=== PATIENT | female | born 1960 | race Caucasian/White ===

== ENCOUNTER 2018-04-07 07:32 | Day surgery (SDC) | payer BC ==
--- NOTE | 2018-04-02 10:07 | RAD REPORT ---
EXAM DESCRIPTION: RAD - Chest Pa And Lat (2 Views) - 04/02/2018 10:01 am CLINICAL HISTORY: Hypertension Chest pain. COMPARISON: CHEST SINGLE VIEW dated 07/19/2012; CHEST PA AND LAT 2 VIEW dated 08/14/2010; CHEST PA AN D LAT 2 VIEW dated 06/01/2010; CHEST PA AND LAT 2 VIEW dated 07/22/2008 FINDINGS: The lungs are clear. The heart is normal in size. No displaced fractures. IMPRESSION: No acute or concerning finding suspected.
[2018-04-02 10:19] LABS: Absolute Lymphocytes (CBC) 1.9 K/uL (0.7-4.9); Absolute Monocytes 0.5 K/uL (0.1-1.3); Absolute Neutrophil 3.6 K/uL (1.8-8.0); Basophils % 0.6 % (0-1.3); Eosinophils % 3.9 % (0-4.4); Hematocrit 41.8 % (36.0-45.0); Lymphocytes % 30.3 % (15.3-44.8); MCH 31.1 pg (27.0-35.0); MPV 8.4 fL (7.6-11.3); Monocytes % 8.1 % (3.3-12.3); RBC Red Blood Cell Count 4.64 M/uL (3.86-4.86)
[2018-04-02 10:20] LABS: Urine Appearance CLEAR; Urine Bilirubin NEGATIVE (NEG); Urine Blood NEGATIVE (NEG); Urine Color YELLOW; Urine Glucose NEGATIVE (NEG); Urine Protein NEGATIVE (NEG); Urine Specific Gravity 1.025 (1.005-1.030); Urine Urobilinogen 0.2 mg/dL (0.2-1.0); Urine pH 5.5 (5.0-7.0)
[2018-04-02 10:34] LABS: Urine Microscopic Reflex NO UMIC
[2018-04-02 10:47] LABS: Albumin 3.9 g/dL (3.4-5.0); Bilirubin Total 0.5 mg/dL (0.2-1.0); Potassium 4.3 mmol/L (3.5-5.1); Protein, Total 7.2 g/dL (6.4-8.2)
--- NOTE | 2018-04-02 11:04 | EKG ---
Test Date: 2018-04-02 Test Time: 09:45:12 Traffic Control Supervisor: CASSIE MEASUREMENT RESULTS: Intervals: Rate: 78 MA: 160 QRSD: 84 QT: 382 QTc: 435 [place]: P: 19 MA: 160 QRS: 42 T: 19 INTERPRETIVE STATEMENTS: Normal sinus rhythm Low voltage QRS Borderline ECG Compared to ECG 07/19/2012 21:40:43 No significant changes Electronically Signed On 04-02-18 11:03:21 CDT by Tyrone Dove
--- OUTSIDE RECORDS SUMMARY | 2018-04-07 07:34 | XMS REPORT ---
:1960 Author Organization eClinicalWorks Care Team Providers Name Role Phone JhaTyrell Provider Role Unavailable Allergies, Adverse Reactions, Alerts Substance Reaction Event Type Cat Hair Extract Info Not Available Drug Allergy Problems Problem Type Condition Code Onset Dates Condition Status Assessment Pain, joint, knee, left M25.562 Active Assessment Complex tear of lateral meniscus S83.272D Active of left knee as current injury, subsequent encounter Problem Pain, joint, knee, left M25.562 Active Problem Unspecified internal derangement M23.92 Active of left knee Problem Complex tear of lateral meniscus S83.272D Active of left knee as current injury, subsequent encounter Problem Dyslipidemia E78.5 Active Problem Cat allergies J30.81 Active Problem Essential hypertension I10 Active Medications Medication Code Code Instructions Start End Status Dosage System Date Date Lisinopril [facility] [address]-27 Active not defined PredniSONE [facility] 82873974124 20 MG Orally Active 1 tablet BID Pravastatin [facility] [address]-51 Active not Sodium defined Azithromycin [facility] 16878996247 250 MG Orally Active 2 tablets Once a day on the first day, then 1 tablet daily for [address] [facility] [address]-72 Active not Sodium defined ProAir HFA [facility] 41027349391 108 (90 Base) Active 2 puffs MCG/ACT Inhalation every 4-6 hrs prn Singulair [facility] 82499178564 10 MG Orally Active 1 tablet Once a day Results No Known Results Summary Purpose eClinicalWorks Submission
[2018-04-07] MEDS ORDERED: Ringers Lactate 1,000 ML IV ONE (07:47)
[2018-04-07] MEDS ORDERED: CEFAZOLIN/SWI 1gm 1 GM/10 ML SYR ONE (07:47)
[2018-04-07] MEDS ORDERED: LIDOCAINE 2% MPF 5 ML VIAL ONE (08:50)
[2018-04-07] MEDS ORDERED: PROPOFOL 200 MG/20 ML VIAL IV ONE (08:50)
[2018-04-07] MEDS ORDERED: FENTANYL CITR 100 MCG/2 ML ONE (08:50)
[2018-04-07] MEDS ORDERED: MIDAZOLAM HCL 2 MG/2 ML INJ ONE (08:50)
[2018-04-07] MEDS ORDERED: ONDANSETRON HCL 40 MG/20 ML VIAL ONE (08:51)
[2018-04-07] MEDS ORDERED: DEPO-MEDROL 40 MG/ML IM ONE (09:11)
[2018-04-07] MEDS: BUPIVACAINE 0.25% PF 10 ML VIAL ONE ×2 (09:35→10:21)
[2018-04-07] MEDS ORDERED: KETOROLAC 30 MG/ML INJ ONE (10:29)
[2018-04-07] MEDS: MORPHINE 4 MG/ML SYR ONE ×2 (10:50→11:03)
[2018-04-07] MEDS: MEPERIDINE HCL 50 MG/ML AMP ONE ×4 (10:57→11:21)
--- NOTE | 2018-04-07 10:57 | P.BOP ---
Preoperative diagnosis: LEFT KNEE INTERNAL DERANGEMENT LATERAL MENISCUS Postoperative diagnosis: TEAR LAT.MENISC.;ANT.MED.PLICA;CHONDROMAL.MFC; LAT.SUBLUX.PATELLA Primary procedure: D.A.ARTHR.LT.KNEE;PLMENISEC.,RESECT.PLICA,LAT.RET.REL., SHAVECM MF&PAT. Inventory Taker: Tyrell Jha Estimated blood loss: < 5mL Specimen: SHAVINGS Anesthesia: General Complications: None Fluids & blood products: INJ 10 mL 0.25%MARCAINE PLAIN, INJ 1mL DEPO-MEDROL 40mg Transferred to: Recovery Room Condition: Good
[2018-04-07] MEDS ORDERED: HYDROCODONE/APAP 5/325 MG TAB ONE (12:06)
[2018-04-07 13:09] VITALS: BP 102/68; TEMP 97.2; O2SAT 98
--- NOTE | 2018-04-07 22:20 | OP ---
Date of Procedure: 04/07/2018 Surgeon: Tyrell Jha MD Preoperative Diagnosis: Left knee internal derangement with mechanical symptoms of popping and givin g way and evidence on MRI of complex lateral meniscal tear. 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 Primary Procedure: Diagnostic arthroscopy of the left knee with partial lateral meniscectomy, resect ion of reactive anteromedial plica, lateral retinacular release, and shaving of chondromalacia of med ial femoral condyle and patella. Indications: This 57-year-old female has had sudden onset of giving way in the left knee while she w as on a cruise vacation walking stairs. She also had an episode in which she fell from an attic open ing as the knee gave way. Risks and benefits have been discussed at length, and the patient has elec sabra to proceed with diagnostic arthroscopy and indicated procedures, left knee. Technique: The patient was taken to the operating room and given general anesthesia with LMA. She w as placed in the leg dorsey with the tourniquet applied to the proximal left thigh. The limb was pre pped and draped and the end of the table was dropped away. The right lower extremity was prepped and supported without hyperextension of the hip. The scope was inserted through a puncture in the later al distal portal, and the medial distal portal was used for instrument insertion. In inspecting the joint, the patella was immediately noted to be riding high on the lateral condyle with overhang of 50 % passing across the intercondylar notch. The scope would not pass into the medial compartment becau se of a large and thickened anteromedial plica that was more reactive and appearing like a meniscus i nstead of a membranous plica. The shaver was introduced, and the plica was excised to prevent clicki ng, popping, and giving way episodes that could ensue. The scope was then passed into the medial com partment. Immediately noticed was a grade 3 and 4 area of chondromalacia on the medial femoral condy le that was shaved and smoothed. The area was small and had shoulders and it did not appear that marisol rofracture technique would help this lesion. The meniscus was probed and found to be stable and inta ct in the medial compartment. Passing into the intracondylar notch, the ACL was identified and noted to be intact without pathology. Passing towards the medial compartment, the large bulbous frond of the lateral meniscus near its insertion was floating into the intercondylar space. It was rubbed smo oth and round like a pebble in a brook indicating that it had been constantly pinched and pulled and was certainly part of the active pathology in this knee. The shaver was introduced and the anterior horn tear of the lateral meniscus was trimmed and smoothed until there was just a stable remnant. Th e meniscus was probed in its posterior aspect and nothing was loose to protrude into the intra-articu lar space. The scope was then moved into the lateral gutter, and after smoothing and trimming around the lateral retinaculum, a lateral retinacular release was carried out with arthroscopic scissors. This was a partial release that allowed the patella to track in the middle of the intercondylar groov e with flexion and extension. The shaver was introduced again for shaving under the patella and the tracking was verified. The knee was inspected again through all compartments. No additional patholo gy was encountered. The instrumentation was withdrawn and puncture wounds were closed with interrupt ed sutures of 4-0 nylon. The incisions were injected with 10 mL of 0.25% Marcaine plain and 1 mL of Depo-Medrol 40 mg was injected into the intra-articular space. The tourniquet was released as bandag e was applied using Xeroform gauze on the punctures x2, 4 x 4 flats, and an ABD prior to soft roll, a nd application of 6-inch Lalo wrap. The patient was taken to recovery room having tolerated this proc edure well. Estimated blood loss was less than 5 mL. JONES/NANO Voice ID: [id number] Report ID: [id number]
== END 2018-04-07 12:30 | disposition home or self-care (01) ==
LOC: OR 07:32
PROVIDERS: ATTEND Orthopaedic Surgery
PROC: 0MNP4ZZ Release Left Knee Bursa and Ligament, Percutaneous Endoscopic Approach (ICD-10-PCS; 2018-04-07)
PROC: 0SBD4ZZ Excision of Left Knee Joint, Percutaneous Endoscopic Approach (ICD-10-PCS; principal; 2018-04-07 08:30)
DX: S83.272A Complex tear of lateral meniscus, current injury, left knee, initial encounter (principal); S83.012A Lateral subluxation of left patella, initial encounter; M67.52 Plica syndrome, left knee; M22.42 Chondromalacia patellae, left knee; M94.262 Chondromalacia, left knee; I10 Essential (primary) hypertension; E78.00 Pure hypercholesterolemia, unspecified; E78.5 Hyperlipidemia, unspecified; F17.210 Nicotine dependence, cigarettes, uncomplicated; Z85.840 Personal history of malignant neoplasm of eye; Z91.048 Other nonmedicinal substance allergy status; Z82.49 Family history of ischemic heart disease and other diseases of the circulatory system; Z83.3 Family history of diabetes mellitus
CPT/HCPCS: 36415; 71046; 80053; 81003; 83036; 85025; 88304; 93005; J0690; J1030; J2175; J2250; J2405; J3010

== ENCOUNTER 2024-03-22 13:14 | Emergency (ER) | payer BC ==
--- OUTSIDE RECORDS SUMMARY | 2024-03-22 13:18 | XMS REPORT | Continuity of Care Document ---
Author Name Unknown Address [address] [facility] [address] [place] [address] [facility] Address [address] [facility] [address] [facility] [address] [place] [address] Care Team Providers Care Lab Coordinator Name Role Phone Michelle Pollardguilherme Primary Care Physician [phone] [email or web address] Attending Clinician UnavailLisa Rousseau MD Attending Clinician [phone] Ebrahim AGATE SETTERJessica Attending Clinician [phone] EBJESSICA BLUE Attending Clinician Unavailable Provider, Mauri Jaimes [facility] Attending Clinician Unavailable Vaccine, Ang Theodore [facility] Attending Clinician Unavailab LISA Sebastian Attending Clinician Unavailable Nurse, Adc Pob Immunization Attending Clinician Unavailable Dinesh Cao DO Attending Clinician [phone] Doctor Unassigned, [place] Attending Clinician U Lula Ma MD Attending Clinician [phone] LULA VELÁSQUEZ Attending Clinician UnavailMARJ Gonzalez Attending Clinician Unavailable FLORY LEVI Attending Clinician Unavailable [email or web address] Admitting Clinician Javad dang Payers Payer Name Policy Type Policy Number Effective Date Expirati on Date Source Problems Condition Name Condition Details Condition Category Status Onset Date Resolution Date Last Treatment Date Treating Clinician Comments Source Plica syndrome of left knee Plica syndrome of left knee Problem Active [facility] No known active problems No known active problems Disease [facility] Pain, joint, knee, left Pain, joint, knee, left Problem Active [facility] Complex tear of lateral meniscus of left knee as current injury, subsequent encounter Complex tear of lateral meniscus of left knee as current injury, subsequent encounter Problem Active [facility] Unspecifie d internal derangemen t of left knee Unspecifie d internal derangemen t of left knee Problem Active [facility] Dyslipidem ia Dyslipidem ia Problem Active [facility] Cat allergies Cat allergies Problem Active [facility] Essential hypertensi on Essential hypertensi on Problem Active [facility] Chills Chills Diagnosis Active [facility] Acute nasopharyn gitis (common cold) Acute nasopharyn gitis (common cold) Diagnosis Active [facility] Cough Cough Diagnosis Active [facility] Encounter for other orthopedic aftercare Encounter for other orthopedic aftercare Problem Active [facility] 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 Problem Active [facility] Allergies, Adverse Reactions, Alerts Allergy Name Allergy Type Status Severity Reaction(s) Onset Date Inactive Date Treating Clinician Comments Source NO KNOWN ALLERGIE S Drug Class Active [facility] Cat Hair Extract Adverse Reaction Active Info Not Available [facility] Social History Social Habit Start Date Stop Date Quantity Comments Source History of tobacco use Cigarette Smoker [facility] to SARS-CoV-2 (event) 2022-01-29 00:00:00 2022-02-08 18:34:00 Not sure [facility] Tobacco use and exposure 2020-04-23 00:00:00 2020-04-23 00:00:00 Smokeless tobacco non-user [facility] History of Social function 2019-09-02 00:00:00 2019-09-02 00:00:00 [facility] Sex Ass[birth year] At 1960 00:00:00 1960 00:00:00 [facility] Smoking Status Start Date Stop Date Source Smokes tobacco daily 2020-04-23 00:00:00 [facility] Medications Ordered Medication Name Filled Medication Name Start Date Stop Date Current Medication? Ordering Clinician Indication Dosage Frequency Signature (SIG) Comments Components Source nirmatrelvi r-ritonavir (PAXLOVID, EUA,) 150 mg x 2- 100 mg tablet 02-08 00:00: 00 Yes [id number] 3{tbl} Take 3 tablets by mouth in the morning and 3 tablets in the evening. [facility] benzonatate 100 mg capsule 02-08 00:00: 00 Yes [id number] 200mg Take 2 capsules by mouth every 8 (eight) hours as needed for Cough. [facility] albuterol 90 mcg/actuati on inhaler 02-08 00:00: 00 Yes [id number] 2{puff} Inhale 2 Puffs every 6 (six) hours as needed for Shortness of Breath. [facility] methylPREDN ISolone 4 mg tablets 16 00:00: 00 02-08 00:00 :00 No Take by mouth SEE-INSTRU CTIONS. follow package directions [facility] Vitamin A-C-D3-Cod Liver Oil 4,000-50-20 0 unit-mg-uni t Chew 2019-07 16:29: 53 Yes Take by mouth. [facility] Vitamin A-C-D3-Cod Liver Oil 4,000-50-20 0 unit-mg-uni t Chew 2019-07 16:29: 53 Yes Take by mouth. [facility] albuterol 90 mcg/actuati on inhaler 2019-07 00:00: 00 02-08 00:00 :00 No [id number] 2{puff} Inhale 2 Puffs every 6 (six) hours as needed for Wheezing or Shortness of Breath. [facility] lisinopril 10 mg tablet 2019-07 0 16:00: 09 Yes 10mg Take 10 mg by mouth daily. [facility] montelukast 10 mg tablet 2019-07 16:00: 09 Yes 10mg Take 10 mg by mouth. [facility] pravastatin 40 mg tablet 2019-07 16:00: 09 Yes 40mg Take 40 mg by mouth at bedtime. [facility] triamcinolo ne 55 mcg nasal inhaler 2019-07 00:00: 00 Yes [id number] 2{spray } Use 2 Sprays in each nostril daily. [facility] cetirizine (ZYRTEC) 10 mg tablet 2019-07 00:00: 00 Yes [id number] 10mg Take 1 tablet by mouth daily. [facility] Lisinopril Lisinopril Yes Richelle Craig not defined [facility] Pravastatin Sodium Pravastatin Sodium Yes Richelle Craig not defined [facility] Montelukast Sodium Montelukast Sodium Yes Richelle Craig not defined [facility] ProAir HFA ProAir HFA Yes Richelle Craig 2 puffs [facility] Immunizations Ordered Immunization Name Filled Immunization Name Date Status Comments Source SARS-COV-2 COVID-19 PFIZER JOHN-SUCROSE VACCINE (GUAJARDO TOP) 2021-12-04 00:00:00 Completed [facility] SARS-COV-2 COVID-19 PFIZER JOHN-SUCROSE VACCINE (GUAJARDO TOP) 2021-12-04 00:00:00 Completed [facility] SARS-COV-2 COVID-19 PFIZER JOHN-SUCROSE VACCINE (GUAJARDO TOP) 2021-12-04 00:00:00 Completed [facility] SARS-COV-2 COVID-19 PFIZER JOHN-SUCROSE VACCINE (GUAJARDO TOP) 2021-12-04 00:00:00 Completed [facility] SARS-COV-2 COVID-19 PFIZER VACCINE 2021-04-30 00:00:00 Completed [facility] SARS-COV-2 COVID-19 PFIZER VACCINE 2021-04-30 00:00:00 Completed [facility] SARS-COV-2 COVID-19 PFIZER VACCINE 2021-04-30 00:00:00 Completed [facility] SARS-COV-2 COVID-19 PFIZER VACCINE 2021-04-30 00:00:00 Completed [facility] SARS-COV-2 COVID-19 PFIZER VACCINE 2021-04-30 00:00:00 Completed [facility] SARS-COV-2 COVID-19 PFIZER VACCINE 2020-10-28 00:00:00 Completed [facility] SARS-COV-2 COVID-19 PFIZER VACCINE 2020-10-28 00:00:00 Completed [facility] SARS-COV-2 COVID-19 PFIZER VACCINE 2020-10-28 00:00:00 Completed [facility] SARS-COV-2 COVID-19 PFIZER VACCINE 2020-10-28 00:00:00 Completed [facility] SARS-COV-2 COVID-19 PFIZER VACCINE 2020-10-28 00:00:00 Completed [facility] SARS-COV-2 COVID-19 PFIZER VACCINE 2020-10-28 00:00:00 Completed [facility] SARS-COV-2 COVID-19 PFIZER VACCINE 2020-10-07 00:00:00 Completed [facility] SARS-COV-2 COVID-19 PFIZER VACCINE 2020-10-07 00:00:00 Completed [facility] SARS-COV-2 COVID-19 PFIZER VACCINE 2020-10-07 00:00:00 Completed [facility] SARS-COV-2 COVID-19 PFIZER VACCINE 2020-10-07 00:00:00 Completed [facility] SARS-COV-2 COVID-19 PFIZER VACCINE 2020-10-07 00:00:00 Completed [facility] SARS-COV-2 COVID-19 PFIZER VACCINE 2020-10-07 00:00:00 Completed [facility] SARS-COV-2 COVID-19 PFIZER VACCINE Unknown Completed [facility] SARS-COV-2 COVID-19 PFIZER VACCINE Unknown Completed [facility] Vital Signs Vital Name Observation Time Observation Value Comments S ource Systolic blood pressure 2022-02-08 23:32:00 131 mm[Hg] [facility] Diastolic blood pressure 2022-02-08 23:32:00 82 mm[Hg] [facility] Heart rate 2022-02-08 23:32:00 83 /min [facility] Body temperature 2022-02-08 23:32:00 37.5 Janie [facility] Respiratory rate 2022-02-08 23:32:00 16 /min [facility] Body height 2022-02-08 23:32:00 160 cm [facility] Body weight 2022-02-08 23:32:00 89.721 kg [facility] BMI 2022-02-08 23:32:00 35.04 kg/m2 [facility] Oxygen saturation in Arterial blood by Pulse oximetry 2022-02-08 23:32:00 98 /min [place] [facility] Body height 2021-04-04 19:54:00 160 cm [facility] Body weight 2021-04-04 19:54:00 88.905 kg [facility] BMI 2021-04-04 19:54:00 34.72 kg/m2 [facility] Procedures Procedure Date / Time Performed Performing Clinicia n Source POCT SARS-COV-2 ANTIGEN (BINAX NOW) 2022-02-08 23:35:00 Lisa Vargas [facility] SARS-COV-2 COVID-19 VACCINE 12 YRS+,0.3ML,IM (PFIZER - [facility]) 2021-12-04 23:25:26 Doctor Unassigned, [place] [facility] SARS-COV-2 COVID-19 VACCINE,0.3ML,IM (PFIZER) 2021-04-30 18:11:30 Doctor Unassigned, [place] [facility] Encounters Start Date/Time End Date/Time Encounter Type Admission Type Attending [facility] Care Facility Care Department Encounter ID Source 2023-05-20 00:00:00 2023-05-20 00:00:00 Outpatient [email or web address] diyala_S PRIV PRIV [id number] [facility] 2023-05-19 00:00:00 2023-05-19 00:00:00 Outpatient [email or web address] diyala_S PRIV PRIV [id number] [facility] 2022-02-08 19:00:00 2022-02-08 19:00:00 Urgent Care Lisa Vargas, [facility] TRAM?[facility] 1.840.114 350.1.13.10 [id number] [id number] [facility] 2022-02-08 19:00:00 2022-02-08 18:46:30 Outpatient R JESSICA GREENE [facility] [id number] [facility] 2022-02-08 00:00:00 2022-02-08 00:00:00 Letter (Out) Provider, Mauri Jaimes [facility] 1.840.114 350.1.13.10 4.2.7.2.686 [id number] [facility] 2022-02-08 00:00:00 2022-02-08 00:00:00 Telephone Provider, Mauri Jaimes [facility] 1.84.114 350.1.13.10 4.2.7.2.686 [id number] [facility] 2021-12-04 18:10:00 2021-12-04 18:20:00 Imm/Inj Visit Vaccine, Ang Theodore Tobin Sam Lisa [facility] 1.840.114 350.1.13.10 4.2.7.2.686 [id number] [facility] 2021-12-04 18:10:00 2021-12-04 18:10:00 Outpatient R SAM LISA [facility] [id number] [facility] 2021-04-30 13:09:26 2021-04-30 13:09:32 Imm/Inj Visit Nurse, Adin Mahoney ImmunizatiDinesh Treviño [facility] 1.840.114 350.1.13.10 4.2.7.2.686 [id number] [facility] 2021-04-30 13:00:00 2021-04-30 13:00:00 Outpatient [facility] [id number] [facility] 2021-04-24 00:00:00 2021-04-24 00:00:00 Patient Secure Msg Doctor Unassigned, [place] [facility] 1.2.840.114 350.1.13.10 4.2.7.2.686 [id number] [facility] 2021-04-05 00:00:00 2021-04-05 00:00:00 Telephone Lula Velásquez [facility] 1.2.840.114 350.1.13.10 4.2.7.2.686 [id number] [facility] 2021-04-04 14:46:27 2021-04-04 15:21:13 Office Visit Lula Velásquez [facility] 1.2.840.114 350.1.13.10 4.2.7.2.686 [id number] [facility] 2021-04-04 14:30:00 2021-04-04 14:30:00 Outpatient R LULA VELÁSQUEZ [facility] [id number] [facility] 2021-04-04 00:00:00 2021-04-04 00:00:00 Orders Only Doctor Unassigned, [place] [facility] [id number] 350.1.13.10 4.2.7.2.686 [id number] [facility] 2020-10-28 20:30:00 2020-10-28 20:30:00 Outpatient [facility] [id number] [facility] 2020-10-07 18:10:00 2020-10-07 18:10:00 Outpatient MARJ BARBOSA [facility] [id number] [facility] 2020-10-03 00:00:00 2020-10-03 00:00:00 Patient Secure Msg Doctor Unassigned, [place] [facility] 1.2.840.114 350.1.13.10 4.2.7.2.686 [id number] [facility] 2020-05-01 00:00:00 2020-05-01 00:00:00 Patient Secure Msg Doctor Unassigned, [place] [facility] 1.2.840.114 350.1.13.10 4.2.7.2.686 [id number] [facility] 2020-04-30 16:40:00 2020-04-30 16:40:00 Outpatient JESSICA DIAZ [facility] [id number] [facility] 2020-04-23 16:20:00 2020-04-23 16:20:00 Outpatient FLORY SIMPSON [facility] [id number] [facility] 2018-09-18 13:45:00 2018-09-18 13:45:00 Outpatient [facility] [id number] [facility] 2018-04-23 13:30:00 2018-04-23 13:30:00 Outpatient [facility] [id number] [facility] 2018-03-16 15:30:00 2018-03-16 15:30:00 Outpatient [facility] [id number] [facility] Results Test Description Test Time Test Comments Results Result Co mments Source [facility]
[2024-03-22] MEDS ORDERED: DOXYCYCLINE 100 MG CAP PO ONE (13:50)
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
--- NOTE | 2024-03-22 13:52 | EDPHYS ---
Physician Documentation [facility] Name: Rocio Jim Age: 63 yrs Sex: Female : 1960 Arrival Date: 03/22/2024 Time: 13:14 Bed 10 Private MD: ED Physician Garry Balderas HPI: 03/22 14:01 This 63 yrs old Female presents to ER via Ambulatory with complaints of Hand Swelling, rt Bee Sting. 14:01 Patient presents to the ED 2 days following a wasp sting to the left little finger. rt Patient states that she had some pain a localized swelling that resolved yesterday. She did do a ropes course yesterday and developed a blister on her left hand. States that today, it became red, swollen on the hand. Denies other acute complaints at this time, symptoms are moderate in severity, no other aggravating or alleviating factors.. Historical: - Allergies: 13:36 Adhesives; db - Home Meds: 13:55 atorvastatin oral [Active]; Metformin Oral [Active]; tl4 - PMHx: 13:36 Diabetes mellitus; Hypercholesterolemia; db 13:55 Lyme disease; tl4 - Immunization history:: Adult Immunizations unknown. - Infectious Disease History:: Denies. - Social history:: Smoking status: Patient reports the use of cigarette tobacco products, smokes one-half pack cigarettes per day. - Family history:: not pertinent. ROS: 14:01 Constitutional: Negative for fever, chills, and weight loss, Cardiovascular: Negative rt for chest pain, palpitations, and edema, Respiratory: Negative for shortness of breath, cough, wheezing, and pleuritic chest pain, Abdomen/GI: Negative for abdominal pain, nausea, vomiting, diarrhea, and constipation, Neuro: Negative for headache, weakness, numbness, tingling, and seizure, Psych: Negative for depression, anxiety, suicide ideation, homicidal ideation, and hallucinations, 14:01 MS/extremity: Positive for pain, swelling, Exam: 14:01 Constitutional: This is a well developed, well nourished patient who is awake, alert, rt and in no acute distress. Head/Face: Normocephalic, atraumatic. Neuro: Awake and alert, GCS 15, oriented to person, place, time, and situation. Cranial nerves II-XII grossly intact. Motor strength 5/5 in all extremities. Sensory grossly intact. Cerebellar exam normal. Normal gait. Psych: Awake, alert, with orientation to person, place and time. Behavior, mood, and affect are within normal limits. 14:01 Musculoskeletal/extremity: Mild swelling, redness to the left hand, no fusiform swelling, no drainable abscess, pulses, motor, sensation intact. Vital Signs: 13:33 BP 129 / 80; Pulse 74; Resp 16; Temp 98.2(O); Pulse Ox 98% ; Weight 80.74 kg; Height 5 db ft. 3 in. ; Pain 5/10; 14:09 BP 121 / 79; Pulse 68; Resp 16; Temp 97.8(TE); Pulse Ox 99% on R/A; tl4 13:33 Body Mass Index 31.53 (80.74 kg, 160.02 cm) db 13:33 Pain Scale: Adult db MDM: 13:39 Patient medically screened. rt 14:01 Differential diagnosis: Cellulitis, bee sting. Data reviewed: vital signs, nurses rt notes. Test considered but Not performed: Other Details Stable vital signs, no clinical evidence to suggest flexor tenosynovitis, abscess, labs, imaging are not indicated. Care significantly affected by the following chronic conditions: Diabetes. Counseling: I had a detailed discussion with the patient and/or guardian regarding the historical points, exam findings, and any diagnostic results supporting the discharge/admit diagnosis, the need for outpatient follow up, to return to the emergency department if symptoms worsen or persist or if there are any questions or concerns that arise at home. Administered Medications: 14:06 Drug: Doxycycline PO 100 mg PO once Route: PO; tl4 14:11 Follow up: Response: No adverse reaction; Medication administered at discharge. tl4 Disposition Summary: 03/22/24 13:51 Discharge Ordered Notes: Location: Home rt Problem: new rt Symptoms: are unchanged rt Condition: Stable rt Diagnosis - Cellulitis to left hand rt Followup: rt - With: Ilan Yates DO - When: 5 - 6 days - Reason: Discharge Instructions: - Discharge Summary Sheet rt - Cellulitis, Adult rt Forms: - Medication Reconciliation Form rt - Antibiotic Education rt - Prescription Opioid Use rt - Patient Portal Instructions rt - Leadership Thank You Letter rt Prescriptions: - Doxycycline Hyclate 100 mg Oral Tablet - take 1 tablet ORAL route every 12 hours; 20 tablet; Refills: 0, Product rt Selection Permitted Signatures: Rosita Rosario RN RN db Garry Balderas MD MD rt Byron Garcia RN RN tl4 Corrections: (The following items were deleted from the chart) 13:36 13:36 Allergies: No Known Allergies; db db
[2024-03-22 14:18] VITALS: BP 121/79; TEMP 97.8; O2SAT 99
== END 2024-03-22 14:11 | disposition home or self-care (01) ==
LOC: ER 13:14
DX: L03.114 Cellulitis of left upper limb (principal); F17.210 Nicotine dependence, cigarettes, uncomplicated
CPT/HCPCS: 99283